=== PATIENT | female | born 1995 | race Caucasian/White ===

== ENCOUNTER 2019-01-11 04:44 | Emergency (ER) | payer MEDICAID ==
[~2019-01-11] VITALS: Ht 152.4 cm; Wt 82.0 kg
[2019-01-11 04:47] VITALS: BP 115/72
== END 2019-01-11 05:31 | disposition left against medical advice (07) ==
LOC: ER 04:44
DX: R51 Headache (principal); Z53.21 Procedure and treatment not carried out due to patient leaving prior to being seen by health care provider